=== PATIENT | male | born 1965 | race Caucasian/White ===

== ENCOUNTER → 2016-05-04 | Day surgery (SDC) | payer MEDICAID, SELFPAY ==
[2015-11-23 11:31] VITALS: BMI 29.0
[~2016-05-04] MED LIST: BUPIVACAINE 0.5% 30 ML VIAL ONE; CEFAZOLIN 1 GM VIAL ONE; FENTANYL 100 MCG/2 ML VIAL IV ONE; FENTANYL 100 MCG/2 ML VIAL IV PRN; HYDROmorphone 1 MG INJECTION IV PRN; LABETALOL 20 MG/4 ML SYRINGE IV PRN; LIDOCAINE 1% 30 ML VIAL (PRESERVATIVE FREE) ONE; MEPERIDINE 25 MG/ML TUBEX IV PRN; MIDAZOLAM 2 MG/2 ML VIAL IV ONE; ONDANSETRON HCL 4 MG ODT TAB PO PRN; ONDANSETRON HCL 4 MG/2 ML VIAL IV PRN; PROMETHAZINE 25 MG/ML VIAL IV PRN; PROPOFOL 200 MG/20 ML VIAL IV ONE; hydrALAZINE 20 MG/ML VIAL IV PRN
--- NOTE | 2016-05-04 06:50 | SC.ANESPOS ---
Post-Anesthesia Note LOC: Fully Awake Post-Anesthesia Assessment: Awake, Returned to Baseline, Hemodynamically Stable , Pain Control Adequate Phase I & II Recovery Complete: Yes Apparent Anesthesia Complication: No : N - Vital Signs Blood Pressure: 116/66 Pulse: 68 Resp Rate: 16 O2 Sat: 94 Temp: 98.8 F
--- NOTE | 2016-05-04 06:52 | HIM.ANES ---
Anesthesia Evaluation & Plan Diagnoses: ENCOUNTER FOR ADJUSTMENT AND MANAGEMENT OF VAD (05/04/16) Consented Procedure: PORT REMOVAL - Focused Review of Systems Cardiac History: Yes: Hx Cardiac Disorders HEENT: Yes: Hx Vision Problem (WEARS GLASSES), Other HEENT Problems Respiratory: Yes: Hx Asthma (CHILDHOOD), Hx Emphysema ([place]MPH[place]) Gastrointestinal: Yes: Hx Gastrointestinal Disorders Neurological/Musculoskeletal: No: Hx Neurological Disorders Psychological: No Hx Anxiety, Yes Hx Depression, No Hx Mental/Emotional Disorders, No Hx Bipolar Disorder Blood/Autoimmune: No: Hx Blood Transfusions, Hx Anemia, Hx AIDS, Hx Hepatitis (type) Smoking Status: Current some day smoker Hx Echocardiogram (date): Yes (09/2015) - Focused Physical Exam NPO since: 05/03/16 1800 Mallampati: Class II Thyromental Distance: Greater than 3 Neck: Full Range of Motion Dental: Normal - no significant findings Cardiovascular/Chest: Normal Respiratory: Lungs clear Any problems with anesthesia, including nausea and vomiting?: No Any relatives with a history of Malignant Hyperthermia?: No Beta Alessio given (if appropriate): N/A Other: Allergies Allergy/AdvReac Type Severity Reaction Status Date / Time Iodinated Contrast Media - Allergy Rash-Genera Verified 05/04/16 06:13 IV Dye lized shellfish derived Allergy Unknown Verified 11/23/15 11:31 Home Medications Medication Instructions Recorded Last Taken Type Methadone HCl 5 mg PO TID 11/23/15 05/04/16 04:00 History Prochlorperazine [Compazine] 10 mg PO Q6H PRN 11/23/15 11/23/15 History Zolpidem Tartrate [Ambien] 5 mg PO HS PRN 05/04/16 Unknown History Height and Weight Patient's height 6 ft 2 in Patient's weight 185 lb BMI 29.0 Vital Signs Temperature 98.8 F 05/04/16 06:50 Pulse Rate 68 05/04/16 06:50 Respiratory Rate 16 05/04/16 06:50 Blood Pressure 116/66 05/04/16 06:50 Pulse Oxygen Saturation 94 05/04/16 06:50 - Anesthetic Plan Anesthesia Type: General, MAC ASA Class: 2 -: I have examined this patient and reviewed the medical record. The patient has been assessed prior to anesthesia. Risks and benefits of anesthesia and anesthetic technique options have been discussed and all questions answered. The patient accepts the risk and desires me to proceed with the planned anesthetic.
--- NOTE | 2016-05-04 07:47 | HIMOPRPT ---
DATE OF PROCEDURE: 05/04/16 PREOPERATIVE DIAGNOSIS: Encounter for management and adjustment of vascular device POSTOPERATIVE DIAGNOSIS: Encounter for management and adjustment of vascular device\ STAGE: Stage IIIB Hodgkin Lymphoma PROCEDURE: Removal of right subclavian Port-A-Cath. SURGEON: Martinez Lovell DO. ANESTHESIA: Monitored anesthesia care with local anesthetic ANESTHESIOLOGIST: Dr. Zacarias Temple DRAINS: None. SPONGE COUNT: Correct COMPLICATIONS: None PATIENT CONDITION: Stable. ESTIMATED BLOOD LOSS: 1 ml. SPECIMEN: Port-A-Cath to pathology. INDICATIONS: This is a 50-year-old male with a history of Port-A-Cath insertion for chemotherapy. The patient has completed chemotherapy, requested Port-A-Cath removal. Risks associated with operation were discussed with the patient in detail include, but not to bleeding, infection, incomplete removal of Port-A- Cath, requiring possible thoracotomy, possible interventional radiology procedure, deep vein thrombosis, resultant pulmonary embolism, perioperative cardiac and respiratory morbidity and mortality. All questions were answered. Informed consent was obtained FINDINGS: Port-A-Cath was removed intact. No evidence of infection or inflammation. PROCEDURE IN DETAIL: ZOYA DOYLE JR was taken to the operative suite at [facility] and placed in the supine position. Monitored anesthesia care was begun. Right chest was sterilely prepped and draped in the usual fashion. A transverse incision was made over the Port-A-Cath. Incision was made after infiltration of local anesthetic. Incision was carried down to the subcutaneous tissue, Port-A-Cath was identified. Previously placed Prolene sutures were cut and removed. The Port-A-Cath was removed. Pressure was held for 10 minutes at the catheter insertion site. Hemostasis was excellent. Pseudocapsule was also removed with electrocautery. Hemostasis was perfected with electrocautery. The catheter tunnel itself was closed with 3-0 Vicryl [id number] suture. Additional 3-0 Vicryl was used for closure of subcutaneous tissue. Skin was closed with 4-0 Monocryl subcuticular stitch. Dermabond was applied. Sterile occlusive dressing was applied over this. The patient was taken to recovery, having tolerated the procedure well.
[2016-05-04 13:48] VITALS: BP 116/66; PULSE 68; TEMP 98.8
== END ==
LOC: SDC 05:37
PROVIDERS: ATTEND Surgery
PROC: 0JPT0XZ Removal of Tunneled Vascular Access Device from Trunk Subcutaneous Tissue and Fascia, Open Approach (ICD-10-PCS; principal; 2016-05-04 07:15)
DX: Z45.2 Encounter for adjustment and management of vascular access device (principal); C81.90 Hodgkin lymphoma, unspecified, unspecified site; J45.909 Unspecified asthma, uncomplicated; J43.9 Emphysema, unspecified; F17.200 Nicotine dependence, unspecified, uncomplicated; Z79.899 Other long term (current) drug therapy
CPT/HCPCS: 36590; J0690; J2001; J2250; J3010; J3490